=== PATIENT | male | born 1990 | race African-American/Black ===

== ENCOUNTER 2016-10-20 19:23 | Emergency (ER) | payer SELFPAY ==
[~2016-10-20] VITALS: Ht 182.9 cm; Wt 65.9 kg
[2016-10-20 21:12] VITALS: BP 123/78
[2016-10-20] MEDS ORDERED: HYDROcodone/APAP 5/325 TABLET ONE (21:13)
[2016-10-20] MEDS ORDERED: DIAZEPAM 5 MG TABLET ONE (21:14)
[2016-10-20] MEDS ORDERED: KETOROLAC 30 MG/1 ML ONE (21:14)
[2016-10-20] MEDS ORDERED: HYDROcodone/APAP 5/325 TABLET PO ONE (21:30)
[2016-10-20] MEDS ORDERED: DIAZEPAM 5 MG TABLET PO ONE (21:30)
[2016-10-20] MEDS ORDERED: KETOROLAC 30 MG/1 ML IM ONE (21:30)
== END 2016-10-20 21:55 | disposition home or self-care (01) ==
LOC: ED 21:49
DX: S16.1XXA Strain of muscle, fascia and tendon at neck level, initial encounter (principal); G44.319 Acute post-traumatic headache, not intractable; F12.10 Cannabis abuse, uncomplicated; V47.6XXA Car passenger injured in collision with fixed or stationary object in traffic accident, initial encounter; Y93.89 Activity, other specified; Y99.8 Other external cause status; Y92.488 Other paved roadways as the place of occurrence of the external cause
CPT/HCPCS: 70450; 72125; 73030; 96372; 99284; J1885

== ENCOUNTER 2016-10-21 13:00 | Emergency (ER) | payer SELFPAY ==
[~2016-10-21] VITALS: Ht 180.3 cm; Wt 65.8 kg
[2016-10-21 13:07] VITALS: BP 113/77
[2016-10-21] MEDS ORDERED: KETOROLAC 30 MG/1 ML IM ONE (13:30)
[2016-10-21] MEDS ORDERED: METHOCARBAMOL 750 MG TABLET PO ONE (13:30)
[2016-10-21] MEDS ORDERED: METHOCARBAMOL 750 MG TABLET ONE (13:37)
[2016-10-21] MEDS ORDERED: KETOROLAC 30 MG/1 ML ONE (13:37)
== END 2016-10-21 14:19 | disposition home or self-care (01) ==
LOC: ED 14:00
DX: S29.012A Strain of muscle and tendon of back wall of thorax, initial encounter (principal); M25.511 Pain in right shoulder; G89.29 Other chronic pain; F17.200 Nicotine dependence, unspecified, uncomplicated; V89.2XXA Person injured in unspecified motor-vehicle accident, traffic, initial encounter; Y93.89 Activity, other specified; Y92.488 Other paved roadways as the place of occurrence of the external cause; Y99.8 Other external cause status
CPT/HCPCS: 71020; 96372; 99284; J1885

== ENCOUNTER 2017-03-01 14:20 | Emergency (ER) | payer MEDICAID ==
[~2017-03-01] VITALS: Ht 185.4 cm; Wt 88.4 kg
[2017-03-01] MEDS ORDERED: CEFTRIAXONE 250 MG ONE (16:28)
[2017-03-01] MEDS ORDERED: AZITHROMYCIN 500 MG TABLET ONE (16:28)
[2017-03-01] MEDS ORDERED: AZITHROMYCIN 500 MG TABLET PO ONE (16:30)
[2017-03-01] MEDS ORDERED: CEFTRIAXONE 250 MG IM ONE (16:30)
[2017-03-01 16:43] VITALS: BP 115/76
== END 2017-03-01 16:51 | disposition home or self-care (01) ==
LOC: ED 16:18
DX: R30.0 Dysuria (principal); R36.9 Urethral discharge, unspecified; F17.200 Nicotine dependence, unspecified, uncomplicated
CPT/HCPCS: 81001; 87086; 96372; 99284; J0696

== ENCOUNTER 2018-10-25 07:38 | Emergency (ER) | payer MEDICAID ==
[~2018-10-25] VITALS: Ht 180.3 cm; Wt 63.9 kg
[2018-10-25 10:06] VITALS: BP 138/84
== END 2018-10-25 10:39 | disposition home or self-care (01) ==
LOC: ED 09:33
DX: J02.0 Streptococcal pharyngitis (principal); F17.210 Nicotine dependence, cigarettes, uncomplicated
CPT/HCPCS: 36415; 70491; 80048; 82040; 85025; 87880; 96372; 99284; J0561; J1100; Q9967

== ENCOUNTER 2019-07-22 16:19 | Emergency (ER) | payer MEDICAID ==
[~2019-07-22] VITALS: Ht 182.9 cm; Wt 65.1 kg
[2019-07-22 16:22] VITALS: BP 128/80
[2019-07-22] MEDS ORDERED: CEFTRIAXONE 1,000 MG ONE (16:43)
[2019-07-22] MEDS ORDERED: LIDOCAINE-MPF 1%, 5ML ONE (16:43)
[2019-07-22] MEDS ORDERED: AZITHROMYCIN 500 MG TABLET ONE (16:43)
[2019-07-22 16:57] LABS: MICROSCOPIC INDICATED
[2019-07-22 16:58] LABS: CULTURE INDICATED? YES
[2019-07-22] MEDS ORDERED: AZITHROMYCIN 500 MG TABLET PO ONE (17:00)
[2019-07-22] MEDS ORDERED: CEFTRIAXONE 250 MG IM ONE (17:00)
== END 2019-07-22 16:58 | disposition home or self-care (01) ==
LOC: ED 16:47
DX: N34.2 Other urethritis (principal); R30.0 Dysuria; F17.200 Nicotine dependence, unspecified, uncomplicated
CPT/HCPCS: 81001; 87077; 87086; 87491; 87591; 96372; 99283; J0696

== ENCOUNTER 2020-04-16 09:29 | Emergency (ER) | payer MEDICAID ==
[~2020-04-16] VITALS: Ht 180.3 cm; Wt 64.4 kg
[2020-04-16 09:39] VITALS: BP 111/80
== END 2020-04-16 10:21 | disposition home or self-care (01) ==
LOC: ED 10:05
DX: A60.01 Herpesviral infection of penis (principal)
CPT/HCPCS: 99283

== ENCOUNTER 2020-05-13 19:21 | Emergency (ER) | payer MEDICAID ==
[~2020-05-13] VITALS: Ht 180.3 cm; Wt 65.0 kg
[2020-05-13 20:18] LABS: MICROSCOPIC NOT IND
[2020-05-13] MEDS ORDERED: AZITHROMYCIN 500 MG TABLET ONE (20:43)
[2020-05-13] MEDS ORDERED: CEFTRIAXONE 250 MG ONE (20:43)
[2020-05-13] MEDS ORDERED: CEFTRIAXONE 250 MG IM ONE (21:00)
[2020-05-13] MEDS ORDERED: AZITHROMYCIN 500 MG TABLET PO ONE (21:00)
[2020-05-13 21:25] VITALS: BP 118/75
== END 2020-05-13 21:26 | disposition home or self-care (01) ==
LOC: ED 20:31
DX: N34.1 Nonspecific urethritis (principal); F17.200 Nicotine dependence, unspecified, uncomplicated
CPT/HCPCS: 81003; 87491; 87591; 96372; 99283; J0696

== ENCOUNTER 2020-07-13 18:55 | Emergency (ER) | payer MEDICAID ==
[~2020-07-13] VITALS: Ht 180.3 cm; Wt 65.0 kg
[2020-07-13 18:58] VITALS: BP 120/64
--- NOTE | 2020-07-13 19:41 | NUR ---
Pt given rx, pt states "I want a bigger rx", informed pt no, that he needs to f/u with clinic.
== END 2020-07-13 19:43 | disposition home or self-care (01) ==
LOC: ED 19:41
DX: A60.01 Herpesviral infection of penis (principal)
CPT/HCPCS: 99283

== ENCOUNTER 2020-09-01 20:56 | Emergency (ER) | payer MEDICAID ==
[~2020-09-01] VITALS: Ht 188 cm; Wt 78.7 kg
--- NOTE | 2020-09-01 21:49 | NUR ---
NIL X 1
--- NOTE | 2020-09-01 22:14 | NUR ---
PT BACK IN LOBBY AWAITING ROOM
--- NOTE | 2020-09-01 22:35 | NUR ---
Pt states has had sob for one day, no cough or feeling of weakness. Provider to see pt to discuss resuts of chest x-ray. Patient given discharge instructions and they have confirmed that they understand the instructions. Patient ambulatory with steady gait. No questions at time of discharge.
[2020-09-01 22:46] VITALS: BP 143/76
== END 2020-09-01 23:03 | disposition home or self-care (01) ==
LOC: ED 22:08
DX: R06.00 Dyspnea, unspecified (principal); R00.0 Tachycardia, unspecified; R06.02 Shortness of breath; F17.200 Nicotine dependence, unspecified, uncomplicated
CPT/HCPCS: 71045; 93005; 99283